=== PATIENT | female | born 1990 | race Hispanic/Latino ===

== ENCOUNTER 2022-10-05 16:55 | Emergency (ER) | payer OTHER ==
[~2022-10-05] VITALS: Ht 157.5 cm; Wt 113.4 kg
[2022-10-05 17:00] VITALS: O2SAT 98
[2022-10-05] MEDS ORDERED: PATADAY5 ML OU (17:22)
[2022-10-05] MEDS ORDERED: NASACORT16.9 ML (17:22)
[2022-10-05] MEDS ORDERED: DIPHENHYDRAMINE25 MG PO (17:22)
== END 2022-10-05 18:19 | disposition home or self-care (01) ==
LOC: ER 17:00
DX: H10.13 Acute atopic conjunctivitis, bilateral (principal); J30.9 Allergic rhinitis, unspecified
CPT/HCPCS: 99282